=== PATIENT | female | born 1995 | race Caucasian/White ===

== ENCOUNTER 2016-07-26 21:48 | Emergency (ER) | payer BC ==
[~2016-07-26] VITALS: Ht 154.9 cm; Wt 77.3 kg
[2016-07-26 22:31] VITALS: BP 125/64
== END 2016-07-26 22:32 | disposition home or self-care (01) ==
LOC: EME 21:48 → EXP 21:48
DX: T15.01XA Foreign body in cornea, right eye, initial encounter (principal); X58.XXXA Exposure to other specified factors, initial encounter; Y92.513 Shop (commercial) as the place of occurrence of the external cause; Y99.0 Civilian activity done for income or pay
CPT/HCPCS: 99281; 99284